=== PATIENT | female | born 1995 | race Caucasian/White ===

== ENCOUNTER 2022-10-19 16:40 | Emergency (ER) | payer MEDICAID, OTHER ==
[2022-10-19 16:48] VITALS: BP 135/87
[2022-10-19] MEDS ORDERED: predniSONE 20 MG TABLET PO STA (16:58)
[2022-10-19] MEDS ORDERED: DOXEPIN 10 MG CAPSULE PO STA (16:58)
--- NOTE | 2022-10-19 17:00 | ED Physician Documentation ---
PD HPI SKIN - Stated complaint Stated Complaint: RASH SPREADING - Chief complaint Chief Complaint: Wound - History obtained from History obtained from: Patient - Additional information Additional information: 26-year-old woman with diffuse itchy rash starting 4 days ago. It is on the trunk, arms and legs but spares the face, palms and soles. There are no systemic symptoms and no oral lesions or sores. She tried Zyrtec without relief. Review of Systems Constitutional: denies: Fever, Chills Throat: denies: Sore throat Skin: reports: Rash, Lesions PD PAST MEDICAL HISTORY - Present Medications Home Medications: Ambulatory Orders Medication Instructions Recorded Confirmed Doxepin [SINEquan] 10 mg PO TID PRN #20 cap 10/19/22 predniSONE [Deltasone] 60 mg PO DAILY 5 Days #15 tablet 10/19/22 - Allergies Allergies/Adverse Reactions: Allergies Allergy/AdvReac Type Severity Reaction Status Date / Time No Known Drug Allergies Allergy Verified 10/19/22 16:48 PD ED PE NORMAL - Vitals Vital signs reviewed: Yes - General General: Alert and oriented X 3, No acute distress - HEENT HEENT: Pharynx benign - Derm Derm: Other (Nonspecific macular lesions on the flexor surfaces of the arms and trunk sparing the face, palms, soles, and mouth.) - Neuro Neuro: Alert and oriented X 3, Normal speech Results - Vitals Vitals: Vital Signs - 24 hr 10/19/22 16:45 Temperature 36.5 C Heart Rate 74 Respiratory 14 Rate Blood Pressure 135/87 H O2 Saturation 100 Oxygen O2 Source Room air PD Medical Decision Making - ED course ED course: Nonspecific rash likely inflammatory versus allergic ". We will trial steroids and doxepin pending follow-up. Departure - Departure Disposition: 01 Home, Self Care Clinical Impression: Dermatitis Condition: Good Record reviewed to determine appropriate education?: Yes Instructions: ED Dermatitis Non Specific Rash Prescriptions: predniSONE [Deltasone] 60 mg PO DAILY 5 Days #15 tablet Doxepin [SINEquan] 10 mg PO TID PRN #20 cap PRN Reason: Itching Comments: The cause of your rash is not clear, if not better you should follow-up with a reeling machine setup operator, 1 option would be: J [phone] Return for new or worsening symptoms.
== END 2022-10-19 17:15 | disposition home or self-care (01) ==
LOC: ED 16:40
DX: L30.9 Dermatitis, unspecified (principal)
CPT/HCPCS: 99282; 99283; A9270; J7512